=== PATIENT | female | born 1980 | race Hispanic/Latino ===

== ENCOUNTER 2023-08-12 12:21 | Emergency (ER) | payer OTHER ==
--- OUTSIDE RECORDS SUMMARY | 2023-08-12 12:25 | XMS REPORT | Continuity of Care Document ---
Author Name Unknown Address [address] [facility] [address] [place] [address] [facility] Address [address] [facility] [address] [place] [address] Care Team Providers Care Transformer Inspector Name Role Phone LESLEY QUIGLEY JR Primary Care Physician RICK Oneal Attending Clinician Unavailable Rick Edmond PA-C Attending Clinician [phone] OREN JARQUIN Attending Clinician Unavailable Oren Jarquin MD Attending Clinician [phone] RICK EDMOND Admitting Clinician Unavailable Allergies, Adverse Reactions, Alerts Allergy Name Allergy Type Status Severity Reaction(s) Onset Date Inactive Date Treating Clinician Comments Source NO KNOWN ALLERGIE S Drug Class Active [facility] Social History Social Habit Start Date Stop Date Quantity Comments Source Sexual orientation [facility] Sex Assigned At 1980 00:00:00 1980 00:00:00 [facility] Smoking Status Start Date Stop Date Source Tobacco smoking consumption unknown [facility] Medications Ordered Medication Name Filled Medication Name Start Date Stop Date Current Medication? Ordering Clinician Indication Dosage Frequency Signature (SIG) Comments Components Source ketorolac (TORADOL) injection 15 mg 06-28 16:45: 00 06-28 16:00 :00 No 15mg 15 mg, Intramuscu lar, ONCE, 1 dose, On 06/28/23 at 1045, Routine [facility] methocarbam oL (ROBAXIN) tablet 1,000 mg 06-28 16:00: 00 06-28 15:57 :00 No 1000mg 1,000 mg, Oral, ONCE, 1 dose, On 06/28/23 at 1000, [place] [facility] dexamethaso ne sod phos PF injection 10 mg 06-28 16:00: 00 06-28 16:00 :00 No 10mg 10 mg, Intramuscu lar, ONCE, 1 dose, On 06/28/23 at 1000, 1 mL [facility] predniSONE 20 mg tablet 06-28 00:00: 00 07-03 05:59 :00 Yes [id number] 20mg Take 1 tablet by mouth in the morning and 1 tablet in the evening. Do all this for 5 days. [facility] methocarbam oL (ROBAXIN-75 0) 750 mg tablet 06-28 00:00: 00 07-03 05:59 :00 Yes [id number] 750mg Take 1 tablet by mouth 4 (four) times daily for 5 days. [facility] gabapentin 100 mg capsule 10-30 00:00: 00 11-14 04:59 :00 No [id number] 100mg Take 1 capsule by mouth in the morning and 1 capsule at noon and 1 capsule in the evening. Do all this for 14 days. [facility] Vital Signs Vital Name Observation Time Observation Value Comments S ource Systolic blood pressure 2023-06-28 17:38:15 134 mm[Hg] [facility] Diastolic blood pressure 2023-06-28 17:38:15 80 mm[Hg] [facility] Heart rate 2023-06-28 17:38:15 93 /min [facility] Respiratory rate 2023-06-28 17:38:15 16 /min [facility] Oxygen saturation in Arterial blood by Pulse oximetry 2023-06-28 17:38:15 98 /min [facility] Body temperature 2023-06-28 15:27:00 37.11 Nicky [facility] Body height 2023-06-28 15:27:[address] [facility] Body weight 2023-06-28 15:27:[address] [facility] BMI 2023-06-28 15:27:00 33.45 kg/m2 [facility] Systolic blood pressure 2022-10-30 23:21:00 143 mm[Hg] [facility] Diastolic blood pressure 2022-10-30 23:21:00 89 mm[Hg] [facility] Heart rate 2022-10-30 23:21:00 92 /min [facility] 2022-10-30 23:21:00 16 /min [facility] Body weight 2022-10-30 23:21:[address] [facility] Oxygen saturation in Arterial blood by Pulse oximetry 2022-10-30 23:21:00 100 /min [facility] Procedures Procedure Date / Time Performed Performing Clinicia n Source XR LUMBAR SPINE 2 VW 2023-06-28 16:31:19 Rick Edmond [facility] POCT TEST 2023-06-28 16:02:00 Rick Edmond [facility] URINALYSIS 2023-06-28 15:59:00 Rick Edmond [facility] CONSENT/REFUSAL FOR DIAGNOSIS AND TREATMENT 2023-06-28 15:25:39 Doctor Unassigned, [place] [facility] ASSIGNMENT OF BENEFITS 2022-10-31 00:02:04 Docto r Unassigned, [place] [facility] CONSENT/REFUSAL FOR DIAGNOSIS AND TREATMENT 2022-10-30 23:09:12 Doctor Unassigned, [place] [facility] NOTICE OF PRIVACY PRACTICES 2022-10-30 23:08:51 Doctor Unassigned, [place] [facility] Encounters Start Date/Time End Date/Time Encounter Type Admission Type Attending Clinicians Care Facility Care Department Encounter ID Source 2023-06-28 09:40:00 2023-06-28 11:40:00 Emergency X RICK EDMOND [facility] ERT [id number] [facility] 2023-06-28 09:40:00 2023-06-28 11:40:00 Emergency Rick Edmond [facility] [id number] [facility] 2022-10-30 18:28:00 2022-10-30 19:51:00 Emergency X OREN JARQUIN [facility] ERT [id number] [facility] 2022-10-30 18:28:00 2022-10-30 19:51:00 Emergency MilkaOren burk [facility] [id number] [id number] [facility] Results Test Description Test Time Test Comments Results Resul t Comments Source XR LUMBAR SPINE 2 VW 2023-06-28 16:41:31 EXAM: XR LUMBAR SPINE 2 VW HISTORY: lumbar radiculopathy, sciatica. COMPARISON: None TECHNIQUE: Frontal and lateral views of the lumbar spine were obtained. FINDINGS: There are five lumbar type vertebra identified. The lumbar vertebral bodiesare normal in height and alignment. No significant degenerative changesidentified . The visualized sacroiliac joints and sacral arcuate lines are unremarkable. [facility] Notes Date/Time Note Provider Source 2023-06-28 11:38:40 [id number] [id number] 28-06-23T11:38:40 Patient discharged home. Take rx as prescribed. Follow up with pcp as needed. [id number] department NpgnIB8571-64-36U33:39:04Emergen y department [id number]. [id number] for patient hjtp52076-5ApdvPSVMYKKZFPRTyqzbtb ed C-CDA narrative [id number] D Wierzbicki RN[address] 6[id number]- 24T11:39:041.2.840.807379.1.72.3. 15|1.2.840.735990.1.13.104.2.7.2. [id number] Anjum Bacon Loan NÚÑEZ [facility] 2023-06-28 09:27:00 z/VJPJr7qxTgYaHngWNC RwXDSMh6j0SRr TNnoPtWHx7/Xq8F5tP5EZprLZRwjPRo44 28-06-23T09:27:00 Patient states: "I've been having low back pain since 4-5 days now. I went to a doctor on and was told I have UTI, prescribed with antibiotics but I haven't taken the dose for today. I took Ibuprofen 800mg and a hydrocodone around 6AM. Pain score of 7/10." [id number] department Triage wrggTE4714-10-46A87:38:37[facility] Triage [id number]. [id number] for patient rauk10371-0Fuorldbpy department NoteLNNARRATIVEFormatted C-CDA narrative [id number] C Heredia [address] 6[id number]- 24T09:38:371.2.840.144974.1.72.3. 15|[id number]. [id number] Stella Diop RN [facility]
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
[2023-08-12 14:44] VITALS: BP 131/86; TEMP 96.9; O2SAT 99
== END 2023-08-12 14:15 | disposition home or self-care (01) ==
LOC: ER 12:21
DX: R51.9 Headache, unspecified (principal); M54.2 Cervicalgia; M54.9 Dorsalgia, unspecified; V49.60XA Unspecified car occupant injured in collision with unspecified motor vehicles in traffic accident, initial encounter
CPT/HCPCS: 70450; 72125; 99283